=== PATIENT | male | born 1985 | race Caucasian/White ===

== ENCOUNTER → 2021-05-14 | Outpatient (CLI) | payer BC ==
[2021-05-15 08:14] LABS: VITAMIN D, 25-HYDROXY 14.4 ng/mL (30.0-100.0)
[2021-05-15 14:14] LABS: RHEUMATOID ARTHRITIS FACTOR <10.0 IU/mL (<14.0)
== END ==
LOC: LAB 13:10
PROVIDERS: Nurse Practitioner Family
DX: M79.10 Myalgia, unspecified site (principal); M25.50 Pain in unspecified joint; M10.9 Gout, unspecified; M79.671 Pain in right foot; M79.672 Pain in left foot
CPT/HCPCS: 36415; 73630; 82550; 82728; 83520; 84439; 84443; 84550; 85652; 86140; 86200; 86431